=== PATIENT | female | born 1980 | race Caucasian/White ===

== ENCOUNTER 2021-08-31 15:32 | Emergency (ER) | payer OTHER, SELFPAY ==
[2021-08-31 15:32] VITALS: BP 111/73; PULSE 82; RESP 18; TEMP 36.9; O2SAT 100; BMI 24.7
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
[2021-08-31] MEDS: IBUPROFEN SUSP 100 MG/5 ML UDC 610 MG PO (16:18)
--- NOTE | 2021-08-31 17:19 | PC.NURSE ---
Mariamine cleared. c-collar removed
[2021-08-31 17:40] VITALS: BP 122/69; PULSE 89; RESP 18; O2SAT 98
== END 2021-08-31 17:40 | disposition home or self-care (01) ==
PROVIDERS: Emergency Provider Emergency Medicine
DX: S16.1XXA Strain of muscle, fascia and tendon at neck level, initial encounter (principal); M25.511 Pain in right shoulder; V89.2XXA Person injured in unspecified motor-vehicle accident, traffic, initial encounter
CPT/HCPCS: 70450; 71045; 72125; 73030; 99283; 99284